=== PATIENT | female | born 2000 ===

== ENCOUNTER 2024-06-28 17:30 | Emergency (ER) | payer OTHER ==
[~2024-06-28] VITALS: Ht 162.6 cm; Wt 59.0 kg
[~2024-06-28 17:30] MED LIST: RXONDA4ODT MM
[2024-06-28 17:36] VITALS: BP 122/89
== END 2024-06-29 17:44 | disposition home or self-care (01) ==
LOC: ER 17:30
DX: S61.313A Laceration without foreign body of left middle finger with damage to nail, initial encounter (principal); W27.4XXA Contact with kitchen utensil, initial encounter; Y93.G1 Activity, food preparation and clean up
CPT/HCPCS: 99282